=== PATIENT | male | born 1985 | race Caucasian/White ===

== ENCOUNTER 2020-10-14 20:20 | Emergency (ER) | payer MEDICAID, MEDICARE ==
[~2020-10-14] VITALS: Ht 177.8 cm; Wt 100.0 kg
--- NOTE | 2020-10-14 21:05 | NUR ---
Pt starting to return to baseline, rouses and asking appropriate questions "did I have a seizure?" "am I at the hospital?" Quickly falls back to sleep. VSS, will con to monitor.
--- NOTE | 2020-10-14 21:15 | NUR ---
Pt with decreased O2 sats, placed on O2 at 2L/NC with good improvement. Pt remains sedated s/p Versed from EMS, but rouses to verbal stimuli.
--- NOTE | 2020-10-14 22:00 | NUR ---
Pt awake and climbing out of bed, attempting to get dressed, states he wants to leave. Pt now reporting that he "took a handful of Wellbutrin and just started driving south." When asked why pt states "why not?" Able to talk pt back into bed, attempting to get ahold of pt's father. Security standing by.
--- NOTE | 2020-10-14 22:01 | NUR ---
Father's number: [phone]
--- NOTE | 2020-10-14 22:13 | NUR ---
Dr. Martínez at bedside for medical eval.
--- NOTE | 2020-10-14 22:15 | NUR ---
Security in hallway for safety.
[2020-10-14] MEDS ORDERED: divalproex sod 250mg ER (24-hour) tablet PO ONE (22:30)
[2020-10-14] MEDS ORDERED: divalproex sod 250mg ER (24-hour) tablet PO SCH (22:30)
[2020-10-14 22:41] LABS: MEAN CORPUSCULAR HEMOGLOBIN 31.9 PG (27.0-31.0); RED CELL DISTRIBUTION WIDTH 14.3 % (11.5-14.5)
[2020-10-14 22:43] LABS: BASOPHILS # (AUTO) 0.1 X10'3 (0-0.2); BASOPHILS % (AUTO) 0.5 % (0-1); EOSINOPHILS % (AUTO) 0.4 % (0-6); HEMATOCRIT 44.2 % (42.0-52.0); LYMPHOCYTES # (AUTO) 2.1 X10'3 (1.1-4.8); LYMPHOCYTES % (AUTO) 19.4 % (21-51); MEAN CORPUSCULAR VOLUME 93.7 FL (78-98); MONOCYTES # (AUTO) 0.8 X10'3 (0-0.9); MONOCYTES % (AUTO) 7.5 % (2-12); NEUTROPHILS % (AUTO) 72.2 % (42-75); PLATELET COUNT 303 X10'3 (140-440); RED BLOOD COUNT 4.72 X10'6 (4.70-6.10)
[2020-10-14] MEDS ORDERED: diphenhydrAMINE 50 mg/ml inj IM STA (22:51)
[2020-10-14] MEDS ORDERED: LORazepam 2 mg/ml vial IM STA (22:51)
[2020-10-14] MEDS ORDERED: haloperidol lactate 5mg/ml inj IM STA (22:51)
[2020-10-14 22:56] LABS: ALANINE AMINOTRANSFERASE 33 U/L (12-78); ALBUMIN/GLOBULIN RATIO 1.1 (1.1-1.5); ALKALINE PHOSPHATASE 78 IU/L (46-116); ANION GAP 13 (8-16); ASPARTATE AMINO TRANSFERASE 26 U/L (10-37); BILIRUBIN,TOTAL 0.4 MG/DL (0.1-1.0); BLOOD UREA NITROGEN 14 MG/DL (7-18); BUN/CREATININE RATIO 12.4 (5.4-32.0); CALCIUM 9.1 MG/DL (8.5-10.1); CHLORIDE 106 MMOL/L (99-107); CREATININE 1.13 MG/DL (0.60-1.10); ETHANOL < 0.010 GM/DL (0.0-0.010); GLUCOSE 115 MG/DL (70-104); POTASSIUM 3.9 MMOL/L (3.5-5.1); SODIUM 140 MMOL/L (135-145); TOTAL CARBON DIOXIDE 20.9 MMOL/L (24-32); TOTAL PROTEIN 7.6 G/DL (6.4-8.2); eGFR 74 ML/MIN
[2020-10-14 23:02] LABS: ACETAMINOPHEN < 2.0 UG/ML (10-30)
--- NOTE | 2020-10-14 23:03 | NUR ---
Visited with the patient, he is AOx4 and just wants to leave. He wants [facility] called so that he can find his vehicle. Informed him that he is on a [address] and what that was. He doesn't care. He is wanting to leave, and probably will. Security aware. Dr. Martínez aware.
--- NOTE | 2020-10-14 23:09 | NUR ---
Johnnie called: Mayur Peace has his vehicle. Phone number given to the patient. The patient has a phone and he is in his room, and is going to call there.
[2020-10-15 01:18] LABS: URINE AMPHETAMINE SCREEN POSITIVE (Neg); URINE BARBITUATE SCREEN NEGATIVE (Neg); URINE BENZODIAZEPINES SCREEN POSITIVE (Neg); URINE CANNABINOID SCREEN POSITIVE (Neg); URINE COCAINE SCREEN NEGATIVE (Neg); URINE METHADONE SCREEN NEGATIVE (Neg); URINE OPIATE SCREEN NEGATIVE (Neg); URINE PHENCYCLIDINE SCREEN NEGATIVE (Neg)
--- NOTE | 2020-10-15 06:34 | NUR ---
Pt currently sleeping on back, snoring intermittently, no distress noted.
[2020-10-15] MEDS ORDERED: NO HOME MEDS (08:29)
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
--- NOTE | 2020-10-15 09:35 | NUR ---
Pt mom called for update and to talk to son. States he has a probabtion officer and the officer's number is in his cell phone. Addendum: 10/15/20 at 1033 by VALARIE Mother states she knows her son becomes depressed during the holidays due to not being able to see his son and that she feels taking the wellbutrin was a suicide attempt.
[2020-10-15] MEDS ORDERED: ARIP10TA8 PO (11:26)
[2020-10-15] MEDS ORDERED: ZIPR40CA2 PO (11:27)
[2020-10-15] MEDS ORDERED: BUPR-94 PO (11:29)
[2020-10-15] MEDS ORDERED: BUPR300T53 PO (11:29)
[2020-10-15] MEDS ORDERED: HYDR50CA5 PO (11:33)
[2020-10-15] MEDS ORDERED: DIVA500T9 PO (11:34)
--- NOTE | 2020-10-15 11:57 | NUR ---
Pt continues to rest. His mother Gayathri called to update this RN of his medications; she found his prescriptions in his room and relayed them to this RN. Medications reconciled. Gayathri was able to update his [employer]ance [employer] officer of the pt's current status as well.
[2020-10-15] MEDS: ARIPIPRAZOLE 10 MG TABLET PO SCH (12:40)
[2020-10-15] MEDS: buPROPion SR 150mg tablet PO SCH ×2 (12:43→20:00)
[2020-10-15] MEDS ORDERED: DIVA-76 PO (12:47)
[2020-10-15] MEDS: divalproex sodium 500mg tablet.DR PO SCH ×2 (12:48→20:00)
--- NOTE | 2020-10-15 15:07 | NUR ---
Pt requested fresh water, and then returns to sleeping. He inquires as to when he will be evaluated and remains polite.
[2020-10-15 17:52] VITALS: BP 113/87
--- NOTE | 2020-10-15 18:14 | NUR ---
Pt placed on hold, he is a little upset but understands the process as he has been placed before due to his psych history. Up and eating dinner.
--- NOTE | 2020-10-15 19:15 | NUR ---
Pt resting quietly, respirations normal, no s/s of complications.
--- NOTE | 2020-10-15 20:00 | NUR ---
Pt resting quietly, respirations normal, no s/s of distress.
[2020-10-15] MEDS ORDERED: hydrOXYzine 25 MG tablet PO SCH (21:00)
[2020-10-15] MEDS ORDERED: ziprasidone 20mg capsule PO SCH (21:00)
--- NOTE | 2020-10-15 21:00 | NUR ---
Pt moved to main ER
--- NOTE | 2020-10-15 22:00 | NUR ---
Pt resting quietly, respirations normal, no s/s of distress.
--- NOTE | 2020-10-15 22:55 | NUR ---
Pt resting quietly, respirations normal, no s/s of distress.
--- NOTE | 2020-10-16 07:00 | NUR ---
Pt ambulates steady gait to overflow room. He is cooperative, pleasant. Resting in bed
[2020-10-16] MEDS ORDERED: buproprion 150mg XL (24-hour) tablet PO SCH (08:00)
--- NOTE | 2020-10-16 08:00 | NUR ---
Pt eating breakfast at bedside, took am medications
[2020-10-16] MEDS: ARIPIPRAZOLE 10 MG TABLET PO SCH (08:18)
[2020-10-16] MEDS: buPROPion SR 150mg tablet PO SCH (08:18)
[2020-10-16] MEDS: divalproex sodium 500mg tablet.DR PO SCH (08:18)
--- NOTE | 2020-10-16 10:04 | NUR ---
Pt mother Gayathri called. [phone]. She is working on getting pt garcía out of [place] and transferred back to [place]
[2020-10-16] MEDS ORDERED: acetaminophen 325mg tablet PO ONE (12:10)
--- NOTE | 2020-10-16 12:44 | NUR ---
Pt awake to eat lunch. Tylenol given earlier per MD order for headache
--- NOTE | 2020-10-16 14:32 | NUR ---
Pt resting, NAD.
--- NOTE | 2020-10-16 14:59 | NUR ---
Pt mother states she is going to come last picker pt hawa. Pt is going to be transferred to [facility].
--- NOTE | 2020-10-16 15:13 | NUR ---
Pt transfer to [facility] via w/c with tech and airport security screener. Belongings with tech. Pt mother states she is coming to get pt wallet from safe
== END 2020-10-16 18:04 ==
LOC: ER 20:21
DX: T43.291A Poisoning by other antidepressants, accidental (unintentional), initial encounter (principal); R32 Unspecified urinary incontinence; R56.9 Unspecified convulsions; F31.9 Bipolar disorder, unspecified; F12.90 Cannabis use, unspecified, uncomplicated; F15.90 Other stimulant use, unspecified, uncomplicated; Z88.0 Allergy status to penicillin; Y92.89 Other specified places as the place of occurrence of the external cause
CPT/HCPCS: 36415; 80053; 80305; 80320; 80329; 85025; 93005; 99285